=== PATIENT | female | born 1970 | race Caucasian/White ===

== ENCOUNTER → 2017-06-02 | Emergency (ER) | payer OTHER ==
[~2017-06-02] MED LIST: ACETAMINOPHEN 325 MG TABLET (FP) ONE; ACETAMINOPHEN 325 MG TABLET (FP) PO ONE
[2017-06-02 21:30] VITALS: BP 151/81; PULSE 81; TEMP 97.9; BMI 25.7
--- NOTE | 2017-06-02 22:03 | PDOC ---
History of Present Illness - General History Source: Patient Exam Limitations: No Limitations - History of Present Illness Initial Comments: 06/02/17 22:12 Patient is a 46 year old female with no significant past medical history who presents to the ED s/p passing out. Patient states that she was at her daughter's advertising analyst appointment as she fainted. She denies any dizziness, nausea or SOB before the episode. She states that she ate earlier today. She denies any nausea or vomiting earlier today. She states that she has never fainted before. She now reports a slight headache after the episode. She denies fever. She denies any recent travel or sick contact. SH: no alcohol use or IVDU. ALL: NKA <Samanta Ventura - Last Filed: 06/03/17 02:04> - General History Source: Patient <Marti Durantan - Last Filed: 06/03/17 02:21> - General Chief Complaint: Lightheaded Stated Complaint: SYNCOPE/NEAR SYNCOPE Time Seen by Provider: 06/02/17 22:03 Past History <Samanta Ventura - Last Filed: 06/03/17 02:04> - Psycho/Social/Smoking Cessation Hx Suicidal Ideation: No Smoking Status: No Smoking History: Never smoked Number of Cigarettes Smoked Daily: 0 <Michael Durant - Last Filed: 06/03/17 02:21> - Past Medical History Allergies/Adverse Reactions: Allergies Allergy/AdvReac Type Severity Reaction Status Date / Time No Known Allergies Allergy Verified 06/02/17 21:28 Home Medications: Ambulatory Orders No Home Medications 0 dose .ROUTE UTDICT 05/14/13 Review of Systems - Review of Systems Able to Perform ROS?: Yes Comments:: 06/02/17 22:12 CONSTITUTIONAL: Absent: fever, chills, diaphoresis, generalized weakness, malaise, loss of appetite HEENT: Absent: rhinorrhea, nasal congestion, throat pain, throat swelling, difficulty swallowing, mouth swelling, ear pain, eye pain, visual Changes CARDIOVASCULAR: Absent: chest pain, palpitations, irregular heart rate, lightheadedness, peripheral edema RESPIRATORY: Absent: cough, shortness of breath, dyspnea with exertion, orthopnea, wheezing, stridor, hemoptysis GASTROINTESTINAL: Absent: abdominal pain, abdominal distension, nausea, vomiting, diarrhea, constipation, melena, hematochezia GENITOURINARY: Absent: dysuria, frequency, urgency, hesitancy, hematuria, flank pain, genital pain MUSCULOSKELETAL: Absent: myalgia, arthralgia, joint swelling SKIN: Absent: rash, itching, pallor HEMATOLOGIC/IMMUNOLOGIC: Absent: easy bleeding, easy bruising, lymphadenopathy, frequent infections ENDOCRINE: Absent: unexplained weight gain, unexplained weight loss, heat intolerance, cold intolerance NEUROLOGIC: Present: headache. Absent: focal weakness or paresthesias, dizziness, unsteady gait, seizure, mental status changes, bladder or bowel incontinence PSYCHIATRIC: Absent: anxiety, depression, suicidal or homicidal ideation, hallucinations. <Samanta Ventura - Last Filed: 06/03/17 02:04> *Physical Exam - Vital Signs Last Vital Signs Temp Pulse Resp BP Pulse Ox 97.9 F 81 16 151/81 99 06/02/17 21:28 06/02/17 21:28 06/02/17 21:28 06/02/17 21:28 06/02/17 21:28 - Physical Exam Comments: 06/02/17 22:13 GENERAL: Well developed, well nourished. Awake and alert. In no acute distress. HEENT: Normocephalic, atraumatic. PERRLA, EOMI. No conjunctival pallor. Sclerae are non -icteric. Moist mucous membranes. Oropharynx is clear. NECK: Supple. Full ROM. No JVD. Carotid pulses 2+ and symmetric, without bruits. No thyromegaly. No lymphadenopathy. CARDIOVASCULAR: Regular rate and rhythm. No murmurs, rubs, or gallops. Distal pulses are 2+ and symmetric. PULMONARY: No evidence of respiratory distress. Lungs clear to auscultation bilaterally. No wheezing, rales or rhonchi. ABDOMINAL: Soft. Non-tender. Non-distended. No rebound or guarding. No organomegaly. Normoactive bowel sounds. MUSCULOSKELETAL Normal range of motion at all joints. No bony deformities or tenderness. No CVA tenderness. EXTREMITIES: No cyanosis. No clubbing. No edema. No calf tenderness. SKIN: Warm and dry. Normal capillary refill. No rashes. No jaundice. NEUROLOGICAL: Alert, awake, appropriate. Cranial nerves 2-12 intact. No deficits to light touch and temperature in face, upper extremities and lower extremities. No motor deficits in the in face, upper extremities and lower extremities. Normoreflexic in the upper and lower extremities. Normal speech. Toes are downgoing bilaterally. Gait is normal without ataxia. PSYCHIATRIC: Cooperative. Good eye contact. Appropriate mood and affect. <Samanta Ventura - Last Filed: 06/03/17 02:04> - Vital Signs Last Vital Signs Temp Pulse Resp BP Pulse Ox 97.9 F 81 16 151/81 99 06/02/17 21:28 06/02/17 21:28 06/02/17 21:28 06/02/17 21:28 06/02/17 21:28 <Michael Durant - Last Filed: 06/03/17 02:21> Heart Score/ECG Review #1 06/02/17 23:00 NS at 61 bpm Nonspecific T wave abnormality <Samanta Ventura - Last Filed: 06/03/17 02:04> ED Treatment Course - LABORATORY CBC & Chemistry Diagram: 06/02/17 22:00 06/02/17 22:00 - RADIOLOGY Radiology Studies Ordered: 06/03/17 02:05 THIS IS A PRELIMINARY REPORT FROM [facility]PER[facility] EXAM: CT brain without contrast FINDINGS: No hemorrhage. No mass. No visible infarct. No edema shift or herniation. Osseous structures are intact. THIS DOCUMENT HAS BEEN ELECTRONICALLY SIGNED Jace Laboy MD <Samanta Ventura - Last Filed: 06/03/17 02:04> - LABORATORY CBC & Chemistry Diagram: 06/02/17 22:00 06/02/17 22:00 <Michael Durant - Last Filed: 06/03/17 02:21> Medical Decision Making - Medical Decision Making 06/03/17 02:19 Dr. Durant: The scribe's documentation has been prepared under my direction and personally reviewed by me in its entirery. I confirm that the note above accurately reflects all work, treatment, procedures, and medical decision making performed by me. <Michael Duarnt - Last Filed: 06/03/17 02:21> *DC/Admit/Observation/Transfer - Attestations Scribe Attestion: 06/02/17 22:13 Documentation prepared by MERCEDES Harrison, acting as faculty i on call medical assistant for Michael Durant DO. <Samanta Ventura - Last Filed: 06/03/17 02:04> - Discharge Dispostion Admit: No <Michael Durant - Last Filed: 06/03/17 02:21> Diagnosis at time of Disposition: Fainting Qualifiers: Syncope type: vasovagal syncope Qualified Code(s): R55 - Syncope and collapse - Discharge Dispostion Disposition: HOME Condition at time of disposition: Stable - Referrals Referrals: STAFF,NOT ON [Primary Care Provider] - Aftab Mehta MD [Non Staff, Medical] - Jv Tavares MD [Staff Physician] - - Patient Instructions Printed Discharge Instructions: DI for Syncope in Adults (Fainting) Print Language: VIETNAMESE
[2017-06-02 22:28] LABS: EOSINOPHIL 1.6 % (0-4.5); MCHC 33.3 g/dl (32.0-36.0); MEAN CELL VOLUME 87.2 fl (80-96); MEAN PLT VOLUME 9.7 fl (7.5-11.1); NEUTROPHILS 68.7 % (42.8-82.8); PLATELET COUNT 165 K/MM3 (134-434); RDW 13.4 % (11.6-15.6)
[2017-06-02 22:53] LABS: ALBUMIN 3.5 g/dl (3.4-5.0); ANION GAP 6 (8-16); BILIRUBIN,TOTAL 0.1 mg/dL (0.2-1.0); CALCIUM 8.8 mg/dL (8.5-10.1); CO2 28 mmol/L (21-32); CREATININE 0.7 mg/dL (0.55-1.02); GLUCOSE,RANDOM 99 mg/dL (74-106); SGOT/AST 15 U/L (15-37); SGPT/ALT 25 U/L (12-78); TOT PROT 7.5 g/dl (6.4-8.2)
[2017-06-02 22:55] LABS: ALK PHOS 70 U/L (45-117); CPK 78 IU/L (26-192); TROPONIN I < 0.02 ng/ml (0.00-0.05)
--- NOTE | 2017-06-03 11:24 | EKG ---
Test Reason : Blood Pressure : / mmHG Vent. Rate : 061 BPM Atrial Rate : 061 BPM P-R Int : 168 ms QRS Dur : 096 ms QT Int : 396 ms P-R-T Axes : 066 060 045 degrees QTc Int : 398 ms NORMAL SINUS RHYTHM NONSPECIFIC T WAVE ABNORMALITY ABNORMAL ECG NO PREVIOUS ECGS AVAILABLE Confirmed by ANGELITO RICHTER, DANIA ([id number]) on 06/03/2017 11:24:26 AM Referred By: Confirmed By:DANIA EATON MD
== END | disposition home or self-care (01) ==
LOC: JER 21:15
DX: R55 Syncope and collapse (principal)
CPT/HCPCS: 36415; 70450-TC; 80053; 84484; 84703; 85025; 93005; 93010; 99283-25

== ENCOUNTER 2018-05-08 23:37 | Emergency (ER) | payer OTHER ==
[2018-05-09 00:29] VITALS: BP 116/77; PULSE 89; TEMP 97.9; BMI 25.7
[2018-05-09] MEDS ORDERED: IBUPROFEN 600 MG TABLET (FP) PO ONE ×2 (01:22→02:14)
--- NOTE | 2018-05-09 01:26 | PDOC ---
History of Present Illness - General Chief Complaint: Injury Stated Complaint: FOOT INJURY Time Seen by Provider: 05/09/18 00:33 History Source: Patient Exam Limitations: No Limitations - History of Present Illness Initial Comments: 05/09/18 01:22 47-year-old woman without significant past medical history who presents emergency Department with left ankle pain status post inversion injury at approximately 3:00 this afternoon. Patient states the pain is increased in intensity since initial injury. She has been walking on the injury since it occurred. Past History - Past Medical History Allergies/Adverse Reactions: Allergies Allergy/AdvReac Type Severity Reaction Status Date / Time No Known Allergies Allergy Verified 05/09/18 00:26 Home Medications: Ambulatory Orders No Home Medications 0 dose .ROUTE UTDICT 05/14/13 - Suicide/Smoking/Psychosocial Hx Smoking Status: No Smoking History: Never smoked Have you smoked in the past 12 months: No Number of Cigarettes Smoked Daily: 0 Information on smoking cessation initiated: No Hx Alcohol Use: No Drug/Substance Use Hx: No Review of Systems - Review of Systems Able to Perform ROS?: Yes Is the patient limited Frisian proficient: No Constitutional: No: Symptoms Reported HEENTM: No: Symptoms Reported Respiratory: No: Symptoms reported Cardiac (ROS): No: Symptoms Reported ABD/GI: No: Symptoms Reported : No: Symptoms Reported Musculoskeletal: Yes: See HPI Integumentary: No: Symptoms Reported Neurological: No: Symptoms reported Endocrine: No: Symptoms Reported Hematologic/Lymphatic: No: Symptoms Reported *Physical Exam - Vital Signs Last Vital Signs Temp Pulse Resp BP Pulse Ox 97.9 F 89 20 116/77 97 05/09/18 00:26 05/09/18 00:26 05/09/18 00:26 05/09/18 00:26 05/09/18 00:26 - Physical Exam General Appearance: Yes: Appropriately Dressed. No: Apparent Distress ( Tenderness to palpation over left lateral malleolus. Large ecchymosis present over left lateral malleolus. No tenderness to palpation over the bones of the foot.) Vascular Pulses: Dorsalis-Pedis (R): 2+, Doralis-Pedis (L): 2+ ED Treatment Course - RADIOLOGY Radiology Studies Ordered: Category Date Time Status ANKLE & FOOT-LEFT* [RAD] Stat Radiology 05/09/18 01:22 Ordered Medical Decision Making - Medical Decision Making 05/09/18 01:25 A/P: 47-year-old woman with left ankle pain status post inversion of the network associate palpation over the left lateral malleolus Ecchymosis noted over left lateral malleolus 2+ DP pulses present No loss of sensation distal to injury Fracture versus sprain Motrin, x-ray, reassess 05/09/18 02:04 X-ray of the ankle as read by me: No fractures are noted. Aircast, discharge, orthopedic follow-up I discussed the physical exam findings, ancillary test results and final diagnoses with the patient. I answered all of the patient's questions. The patient was satisfied with the care received and felt comfortable with the discharge plan and treatment plan. The patient will call their primary care physician within 24 hours to arrange follow-up and will return to the Emergency Department with any new, persistent or worsening symptoms. *DC/Admit/Observation/Transfer Diagnosis at time of Disposition: Ankle pain, left Qualifiers: Chronicity: acute Qualified Code(s): M25.572 - Pain in left ankle and joints of left foot - Discharge Dispostion Disposition: HOME Condition at time of disposition: Stable Decision to Admit order: No - Referrals Referrals: Romina Smith MD [Primary Care Provider] - Carlitos Coronado MD [Staff Physician] - - Patient Instructions Additional Instructions: Take Tylenol or Motrin as needed for pain. Follow manufacturers instructions for appropriate dosage. Apply ice for 20 minutes and removed for at least 20 minutes before reapplying the ice. Keep Air Cast on your ankle as much as possible to help decrease some of the swelling and control pain. Whenever possible keep your foot elevated to decrease swelling to your ankle. You've been given the number for an orthopedist. If symptoms do not resolve within the next 7 days call the orthopedist for further evaluation. Return to emergency department for discoloration of the foot, numbness or tingling to the foot, worsening pain, or any other concerns. Thank you very much for choosing us to provide your emergent healthcare needs. Odum Tylenol o Motrin segn sea necesario para el dolor. Siga las instrucciones del fabricante para la dosificacin apropiada. Aplique hielo sofya 20 minutos y retrelo sofya al menos 20 minutos antes de volver a aplicar el hielo. Mantenga Air Cast en shaikh tobillo tanto bahman sea posible para ayudar a disminuir parte de la hinchazn y controlar el dolor. Siempre que sea posible, mantenga el pie elevado para disminuir la hinchazn del tobillo. Le dieron el nmero de un ortopedista. Si los sntomas no se resuelven en los prximos 7 carney, llame al ortopedista para jason evaluacin adicional. Regrese al departamento de emergencia para decolorar el pie, entumecimiento u hormigueo del pie, empeoramiento del dolor o cualquier otra inquietud. Muchas jean por elegirnos para brindarle pete necesidades emergentes de atencin mdica. - Post Discharge Activity Forms/Work/School Notes: Back to Work
== END 2018-05-09 02:34 | disposition home or self-care (01) ==
LOC: JER 23:37
PROC: 2W3RX1Z Immobilization of Left Lower Leg using Splint (ICD-10-PCS; principal; 2018-05-08)
DX: S90.02XA Contusion of left ankle, initial encounter (principal); S99.812A Other specified injuries of left ankle, initial encounter; X50.1XXA Overexertion from prolonged static or awkward postures, initial encounter; Y93.89 Activity, other specified; Y92.89 Other specified places as the place of occurrence of the external cause; Y99.8 Other external cause status
CPT/HCPCS: 73610-TC-LT-FY; 73630-TC-LT; 99282-25

== ENCOUNTER 2019-07-16 21:21 | Emergency (ER) | payer OTHER | END 2019-07-16 22:16 | disposition home or self-care (01) | LOC: JER 21:21 ==

== ENCOUNTER 2021-07-16 20:51 | Emergency (ER) | payer OTHER ==
[2021-07-16 21:17] VITALS: TEMP 97.9; BMI 27.0
[2021-07-16] MEDS ORDERED: LACTATED RINGERS SOLUTION 1000 ML INFUS.BAG IV ONE (21:41)
[2021-07-16 22:31] LABS: EOS % 2.9 % (0-4.5); HEMATOCRIT 42.5 % (32.4-45.2); HEMOGLOBIN 14.6 GM/dL (10.7-15.3); LYMPH % 27.1 % (8-40); MCH 29.7 pg (25.7-33.7); MCHC 34.4 g/dl (32.0-36.0); MEAN CELL VOLUME 86.4 fl (80-96); MEAN PLT VOLUME 9.5 fl (7.5-11.1); MONO % 4.6 % (3.8-10.2); NEUT % 64.4 % (42.8-82.8); PLATELET COUNT 193 10^3/uL (134-434); RBC 4.93 M/mm3 (3.60-5.2); RDW 13.8 % (11.6-15.6); WHITE BLOOD COUNT 9.2 K/mm3 (4.0-10.0)
[2021-07-16 22:50] LABS: CHLORIDE 105 mmol/L (98-107); SODIUM 139 mmol/L (136-145)
[2021-07-16 22:51] LABS: CALCIUM 9.3 mg/dL (8.5-10.1)
[2021-07-16 22:53] LABS: ANION GAP 6 MMOL/L (8-16); CO2 28 mmol/L (21-32)
[2021-07-16 22:54] LABS: ALBUMIN 3.8 g/dl (3.4-5.0); BLOOD UREA NITROGEN 15.7 mg/dL (7-18)
[2021-07-16 22:55] LABS: GLUCOSE,RANDOM 93 mg/dL (74-106); SGPT/ALT 24 U/L (13-61)
[2021-07-16 22:57] LABS: BILIRUBIN,TOTAL 0.2 mg/dL (0.2-1); TOT PROT 8.5 g/dl (6.4-8.2)
[2021-07-16 22:58] LABS: ALK PHOS 73 U/L (45-117); SGOT/AST 18 U/L (15-37)
[2021-07-16 22:59] LABS: CREATININE 0.7 mg/dL (0.55-1.3)
[2021-07-17 02:08] VITALS: BP 126/77; PULSE 81
== END 2021-07-17 02:09 | disposition home or self-care (01) ==
LOC: JER 20:51
DX: R00.2 Palpitations (principal); R07.9 Chest pain, unspecified
CPT/HCPCS: 36415; 71275-TC; 80053; 82550; 84484; 84703; 85025; 85379; 93005; 93010; 99285-25

== ENCOUNTER 2021-12-22 17:22 | Emergency (ER) | payer OTHER ==
[2021-12-22 17:41] VITALS: BP 110/75; PULSE 105; TEMP 98.2; BMI 26.8
[2021-12-22] MEDS ORDERED: SODIUM CHLORIDE 0.9% 500 ML INFUS.BAG IV ONE (19:49)
[2021-12-22] MEDS ORDERED: ACETAMINOPHEN 1000 MG/100 ML BAG IVPB ONE (20:22)
[2021-12-22 20:40] LABS: BASO % 0.1 % (0-2.0); EOS % 2.7 % (0-4.5); HEMOGLOBIN 14.3 GM/dL (10.7-15.3); LYMPH % 21.3 % (8-40); MCH 29.9 pg (25.7-33.7); MEAN CELL VOLUME 88.1 fl (80-96); MEAN PLT VOLUME 9.8 fl (7.5-11.1); MONO % 8.4 % (3.8-10.2); NEUT % 67.5 % (42.8-82.8); PLATELET COUNT 200 10^3/uL (134-434); RBC 4.76 M/mm3 (3.60-5.2); RDW 13.6 % (11.6-15.6)
[2021-12-22] MEDS ORDERED: ACETAMINOPHEN INJECTION 100 ML IVPB ONE (21:03)
[2021-12-22 21:06] LABS: CALCIUM 8.6 mg/dL (8.5-10.1)
[2021-12-22 21:07] LABS: ALBUMIN 3.2 g/dl (3.4-5.0); BLOOD UREA NITROGEN 16.7 mg/dL (7-18)
[2021-12-22 21:10] LABS: CREATININE 0.7 mg/dL (0.55-1.3)
[2021-12-22 21:11] LABS: BILIRUBIN,TOTAL 0.5 mg/dL (0.2-1); TOT PROT 7.4 g/dl (6.4-8.2)
[2021-12-22 22:07] LABS: URINE APPEARANCE CLEAR; URINE BILIRUBIN NEGATIVE (NEGATIVE); URINE COLOR YELLOW; URINE GLUCOSE (UA) NEGATIVE (NEGATIVE); URINE KETONE 1+ (NEGATIVE); URINE LEUK ESTERASE NEGATIVE (NEGATIVE); URINE NITRITE NEGATIVE (NEGATIVE); URINE PROTEIN NEGATIVE (NEGATIVE); URINE UROBILINOGEN 0.2 mg/dL (0.2-1.0)
== END 2021-12-22 22:51 | disposition home or self-care (01) ==
LOC: JER 17:22
PROC: 3E0333Z Introduction of Anti-inflammatory into Peripheral Vein, Percutaneous Approach (ICD-10-PCS; principal; 2021-12-22)
DX: R11.2 Nausea with vomiting, unspecified (principal)
CPT/HCPCS: 36415; 80053; 81003; 83690; 85025; 87086; 99284-25